=== PATIENT | male | born 1990 | race Two or more races ===

== ENCOUNTER 2025-07-09 21:04 | Emergency (ER) | payer OTHER ==
[~2025-07-09] VITALS: Ht 162.6 cm; Wt 77.1 kg
[2025-07-09 21:36] VITALS: BP 123/83; O2SAT 96
[2025-07-09] MEDS ORDERED: CEFTRIAXONE SODIUM 1,000 MG VIAL IV STA (23:47)
[2025-07-09] MEDS ORDERED: KETOROLAC TROMETHAMINE 30 MG VIAL IV STA (23:47)
[2025-07-10 00:58] LABS: BASO % 0.5 % (0.1-1.2); EOS # 0.03 (0.04-0.54); EOS % 0.3 % (0.7-7.0); LYMPH # 2.30 (1.18-3.74); LYMPH % 21.5 % (19.3-53.1); MEAN PLATELET VOLUME 9.70 fl (9.4-12.4); MONO # 1.04 (0.24-0.82); MONO % 9.7 % (4.7-12.5); NEUT # 7.26 (1.56-6.13); NEUT % 67.6 % (34.0-71.1); RED CELL DISTRIBUTION WIDTH 12.6 % (11.6-14.4)
[2025-07-10 01:18] LABS: INR 1.0
[2025-07-10 01:24] LABS: ALT/SGPT 37.0 U/L (12-78); AST/SGOT 16.0 U/L (15-37); BILIRUBIN TOTAL 0.25 mg/dL (0.3-1.2); BUN CREA RATIO 20.0 (7.0-25.0); CREATININE SERUM 0.79 mg/dL (0.70-1.30); GFR 113.66; GLOBULINA 4.7 G/DL (2.4-3.5); GLUCOSE FASTING 109.0 mg/dL (65-100); OSMOLALITY SERUM 290.0 MOSM/KG (275-295)
[2025-07-10] MEDS ORDERED: 0.9 % SODIUM CHLORIDE 1,000 ML IV ONE (06:00)
[2025-07-10 06:54] LABS: URINE APPEARANCE Clear; URINE BILIRRUBIN Negative (NEGATIVE); URINE BLOOD Negative; URINE COLOR Yellow; URINE GLUCOSE Negative (NEGATIVE); URINE KETONE Trace (NEGATIVE); URINE LEUKOCYTE Trace; URINE NITRATE Negative; URINE PROTEIN Trace (NEGATIVE); URINE UROBILINOGEN 0.2 E.U./dl
[2025-07-10 06:55] LABS: URINE BACTERIA 17.1 uL (0.0-1933); URINE EPITHELIAL CELLS 3.8 uL (0.0-38.8); URINE RBC 8.9 uL (0.0-20.8); URINE WBC 13.7 uL (0.0-23.2)
[2025-07-10 06:56] LABS: URINE CAST 0.00 uL (0.0-1.40)
[2025-07-10] MEDS ORDERED: CEFTRIAXONE SODIUM 1,000 MG VIAL IV STA (07:21)
== END 2025-07-10 09:47 | disposition home or self-care (01) ==
LOC: ER 21:04
PROVIDERS: General Practice
DX: N48.29 Other inflammatory disorders of penis (principal)